=== PATIENT | male | born 1980 | race Caucasian/White ===

== ENCOUNTER → 2018-03-08 09:23 | Outpatient (REF) | payer OTHER, SELFPAY ==
[2018-03-08 09:35] LABS: Urine Amphetamines Negative (Negative); Urine Barbiturates Negative (Negative); Urine Benzodiazepines Negative (Negative); Urine Cocaine Negative (Negative); Urine MDMA Negative (Negative); Urine Methadone Negative (Negative); Urine Methamphetamines Negative (Negative); Urine Morphine/Opi cutoff 2000 Negative (Negative); Urine Oxycodone Negative (Negative); Urine Phencyclidine Negative (Negative); Urine Tetrahydrocannabinol Negative (Negative); Urine Tricyclic Antidepressant Negative (Negative)
== END ==
LOC: LAB 09:23
PROVIDERS: Visit Provider Family Medicine Sleep Medicine
DX: G47.00 Insomnia, unspecified (principal)
CPT/HCPCS: 80305; 95805

== ENCOUNTER 2018-09-07 12:19 | Emergency (ER) | payer OTHER, SELFPAY ==
[2018-09-07 12:27] VITALS: BP 125/83; PULSE 67; RESP 20; TEMP 36.9; O2SAT 96; BMI 23.7
--- NOTE | 2018-09-07 12:50 | DI.RAD.S_ITS ---
PROCEDURE: XR CHEST 2V INDICATIONS: cough, wheezing TECHNIQUE: 2 views of the chest were acquired. COMPARISON: None. FINDINGS: Surgical changes and devices: None. Lungs and pleura: Lungs are clear. No pleural effusions or pneumothorax. Mediastinum: Mediastinal contours are normal. Heart size is normal. Bones and chest wall: No suspicious bony abnormalities. Soft tissues appear unremarkable. IMPRESSION: Negative chest. No acute cardiopulmonary process is suspected. Dictated by: Terence George M.D. on 09/07/2018 at 12:03 Approved by: Terence George M.D. on 09/07/2018 at 12:03
--- NOTE | 2018-09-07 13:02 | ED.URI ---
HPI - URI/Sore Throat <EDIN Cruz - Last Filed: 09/07/18 13:57> General Chief Complaint: Upper Respiratory Symptoms Stated Complaint: Congestion, cough, ears plugged Time Seen by Provider: 09/07/18 12:44 Source: patient Mode of arrival: ambulatory History of Present Illness HPI Narrative: The patient is a 38-year-old male nonsmoker with history of seasonal allergies who presents with cough congestion and URI symptoms for 1 week. He states he has a dry cough, so bad he does not sleep well. He has taken Keily-Gallant and Afrin for 1 day. He has stopped taking his Flonase as he does not want to put anything else inside of his nose when he is feeling congested. He denies any fevers nausea vomiting or diarrhea. He denies any abdominal pain. Related Data Previous Rx's Medication Instructions Recorded cyclobenzaprine 10 mg tablet 10 mg PO TID #30 tab 01/20/18 cyclobenzaprine 10 mg tablet 10 mg PO TID #30 tab 01/20/18 benzonatate [Tessalon Perles] 100 mg PO BID-TID PRN #30 cap 09/07/18 Allergies Allergy/AdvReac Type Severity Reaction Status Date / Time No Known Drug Allergies Allergy Verified 01/20/18 10:17 Review of Systems <EDIN Cruz - Last Filed: 09/07/18 13:57> Review of Systems GENERAL: Denies chills, fatigue, malaise, fever, sweats. HEENT: See HPI. RESPIRATORY: See HPI CARDIOVASCULAR: Denies chest pain, palpitations, orthopnea, edema, GASTROINTESTINAL: Denies nausea, vomiting, abdominal pain, diarrhea, constipation, melena. : Denies dysuria, frequency, incontinence, hematuria, urinary retention. MUSCULOSKELETAL: denies weakness, joint pain, or bony pain SKIN: Denies rash, skin lesions, or other NEUROLOGIC: Denies weakness, headache, numbness, change in speech, confusion, seizures, incoordination. PSYCHIATRIC: No concerning psychosocial issues. 12 point review of systems is negative except for those stated above PFSH <EDIN Cruz - Last Filed: 09/07/18 13:57> Medical History Primary insomnia (Chronic) Excessive daytime sleepiness (Chronic) Snoring (Chronic) Social History marital status: household members: spouse lives independently: Yes Smoking Status: Never smoker substance use type: does not use Social History marital status: household members: spouse lives independently: Yes Smoking Status: Never smoker substance use type: does not use Exam <EDIN Cruz - Last Filed: 09/07/18 13:57> Narrative Exam Narrative: GENERAL: This is a well-nourished, well-developed patient, no acute distress HEAD: Atraumatic. Normocephalic. No temporal or scalp tenderness. EYES: Pupils equal round and reactive. Extraocular motions intact. No scleral icterus. No injection or drainage. ENT: Nose without bleeding, purulent drainage or septal hematoma. Throat without erythema, tonsillar hypertrophy or exudate. Uvula midline. Airway patent. Bilateral TMs pearly james. No erythema and canals. NECK: Trachea midline. No JVD or lymphadenopathy. Supple, nontender, no meningeal signs. CARDIOVASCULAR: Regular rate and rhythm without murmurs, gallops, or rubs. RESPIRATORY: Clear to auscultation. Breath sounds equal bilaterally. No wheezes, rales, or rhonchi. Persistent dry cough on exam. No accessory muscle use. No stridor. GASTROINTESTINAL: Abdomen soft, non-tender, nondistended. No hepato-splenomegaly, or palpable masses. No guarding. EXTREMITIES: No clubbing, cyanosis, or edema. No joint tenderness, effusion, or edema noted. BACK: Nontender without deformity or crepitance. No flank tenderness. NEURO: AOx3. SKIN: No rash or erythema. Initial Vital Signs Initial Vital Signs: Vital Signs Temperature 98.4 F 09/07/18 12:27 Pulse Rate 67 09/07/18 12:27 Respiratory Rate 20 09/07/18 12:27 Blood Pressure 125/83 09/07/18 12:27 Pulse Oximetry 96 09/07/18 12:27 <Teetee Edmondson DO - Last Filed: 09/07/18 14:42> Initial Vital Signs Initial Vital Signs: Vital Signs Temperature 98.4 F 09/07/18 12:27 Pulse Rate 67 09/07/18 12:27 Respiratory Rate 20 09/07/18 12:27 Blood Pressure 125/83 09/07/18 12:27 Pulse Oximetry 96 09/07/18 12:27 Course <EDIN Cruz - Last Filed: 09/07/18 13:57> Orders Ordered: ED Orders 09/07/18 12:50 XR chest 2V Stat Vital Signs - 8 hr 09/07/18 12:27 09/07/18 13:30 Temperature 98.4 F Pulse Rate 67 78 Respiratory Rate 20 20 Blood Pressure 125/83 Blood Pressure [Left Arm] 135/86 Pulse Oximetry 96 97 <Teetee Edmondson DO - Last Filed: 09/07/18 14:42> Orders Ordered: ED Orders 09/07/18 12:50 XR chest 2V Stat Vital Signs - 8 hr 09/07/18 12:27 09/07/18 13:30 Temperature 98.4 F Pulse Rate 67 78 Respiratory Rate 20 20 Blood Pressure 125/83 Blood Pressure [Left Arm] 135/86 Pulse Oximetry 96 97 MDM - URI/Sore Throat <EDIN Cruz - Last Filed: 09/07/18 13:57> Imaging Data Chest x-ray: Radiologist's impression: [place] [address] XRay Report Signed Patient: Tony Matthews [facility]#: [id number] : 1980Acct:[id number] Age/Sex: 38 / MDate of Service: 09/07/18 Loc: ED Accession Number: [id number] Procedure: XR chest 2V Ordering Provider: Teetee Giron PROCEDURE: XR CHEST 2V INDICATIONS: cough, wheezing TECHNIQUE: 2 views of the chest were acquired. COMPARISON: None. FINDINGS: Surgical changes and devices: None. Lungs and pleura: Lungs are clear. No pleural effusions or pneumothorax. Mediastinum: Mediastinal contours are normal. Heart size is normal. Bones and chest wall: No suspicious bony abnormalities. Soft tissues appear unremarkable. IMPRESSION: Negative chest. No acute cardiopulmonary process is suspected. Dictated by: Terence George M.D. on 09/07/2018 at 12:03 Approved by: Terence George M.D. on 09/07/2018 at 12:03 [facility] Narrative Medical decision making narrative: The patient is a 58 year male who presents with chief complaint of URI symptoms and cough. He has a negative chest x-ray. He is well appearing and nontoxic on exam. I gave him a prescription of Tessalon Perles as well as discussions regarding use Flonase, sinus rinse, [id number] measures as needed and able. Encouraged follow-up with primary care provider in the next few days. Discussed coming back to the emergency department for any acute concerns such as chest pain, shortness of breath etc. Patient has no questions or concerns upon discharge. Discharge Plan Departure Patient Disposition: Home Clinical Impression: Cough URI (upper respiratory infection) Qualifiers: URI type: unspecified viral URI Qualified Code(s): J06.9 - Acute upper respiratory infection, unspecified Discharge Date/Time: 09/07/18 13:42 Interventions: ED Discharge Assessment Last Done: 09/07/18 13:38 Instructions: DI for Cough -- Adult, DI for Viral Upper Respiratory Infection -- Adult Activity Restrictions/Additional Instructions: Your chest x-ray shows no pneumonia. We do not consider sinus infections bacterial until 2 weeks or so. If her symptoms persist at this point please follow up with her primary care provider. I suggest continued use of Flonase as well as a Neti pot and Sudafed if possible. Be aware Sudafed can cause increased blood pressure. I have also given you a prescription for cough medication. I suggest continued use of lemon and honey as well as [id number] cough medications as needed and able. Please follow up with primary care provider. Please come back to emergency department for any acute concerns such as chest pain, shortness of breath except Prescriptions: New benzonatate [Tessalon Perles] 100 mg capsule 100 mg PO BID-TID PRN (Reason: cough) Qty: 30 RF: 0 No Action cyclobenzaprine 10 mg tablet 10 mg PO TID Qty: 30 RF: 0 cyclobenzaprine 10 mg tablet 10 mg PO TID Qty: 30 RF: 0 Referrals: [facility] [Provider Group] <Teetee Edmondson, - Last Filed: 09/07/18 14:42> Cosign ED Attending Cosignature Attestation: I was immediately available in the department for consultation. This documentation has been reviewed and I agree with assessment and plan. Supervised by Teetee Edmondson,
--- NOTE | 2018-09-07 13:11 | PC.NURSE ---
pt states in the morning cough is productive and then dry the rest of the day.
[2018-09-07 13:30] VITALS: BP 135/86; PULSE 78; RESP 20; O2SAT 97
== END 2018-09-07 13:42 | disposition home or self-care (01) ==
PROVIDERS: Emergency Provider Nurse Practitioner Family
DX: J06.9 Acute upper respiratory infection, unspecified (principal)
CPT/HCPCS: 71046; 99282; 99283